=== PATIENT | male | born 1965 | race African-American/Black ===

== ENCOUNTER 2021-02-04 16:38 | Emergency (ER) | payer OTHER ==
[~2021-02-04] VITALS: Ht 172.7 cm; Wt 100.0 kg
[2021-02-04 16:49] VITALS: BP 168/98
[2021-02-04] MEDS ORDERED: CYCL10TA7 MT (17:58)
[2021-02-04] MEDS ORDERED: NAPR500T7 MT (17:58)
== END 2021-02-04 19:30 | disposition home or self-care (01) ==
LOC: ER 16:38
DX: S80.12XA Contusion of left lower leg, initial encounter (principal); V43.52XA Car driver injured in collision with other type car in traffic accident, initial encounter; Y93.89 Activity, other specified; Y92.410 Unspecified street and highway as the place of occurrence of the external cause
CPT/HCPCS: 73590; 99283